=== PATIENT | female | born 1985 | race Caucasian/White ===

== ENCOUNTER 2024-03-21 08:34 | Emergency (ER) | payer BC ==
[~2024-03-21] VITALS: Ht 157.5 cm; Wt 49.9 kg
[2024-03-21 08:34] VITALS: BP 146/75; PULSE 106; RESP 18; TEMP 98.6; O2SAT 99
[2024-03-21 08:47] VITALS: BP 146/75; PULSE 106; RESP 18; TEMP 98.6; O2SAT 99
[2024-03-21] MEDS ORDERED: TETRACAINE HCL ONE (08:48)
[2024-03-21] MEDS ORDERED: FUL-GLO OP ONE (08:48)
[2024-03-21 08:49] VITALS: BP 146/76; PULSE 78; RESP 18; TEMP 98.6; O2SAT 99
[2024-03-21 09:03] VITALS: BP 150/86; PULSE 86; RESP 18; TEMP 98.6; O2SAT 98
[2024-03-21] MEDS ORDERED: MOXI3DRO2 OP (09:08)
== END 2024-03-21 09:08 | disposition home or self-care (01) ==
LOC: ER 08:34
DX: S05.31XA Ocular laceration without prolapse or loss of intraocular tissue, right eye, initial encounter (principal); W50.4XXA Accidental scratch by another person, initial encounter; Y93.89 Activity, other specified; Y92.89 Other specified places as the place of occurrence of the external cause; Y99.8 Other external cause status; Z88.2 Allergy status to sulfonamides; Z88.5 Allergy status to narcotic agent
CPT/HCPCS: 99283